=== PATIENT | female | born 1985 | race Two or more races ===

== ENCOUNTER 2020-04-18 17:44 | Emergency (ER) | payer OTHER ==
[~2020-04-18] VITALS: Ht 152.4 cm; Wt 105.2 kg
[~2020-04-18 17:44] MED LIST: LEVATOL20 MG
[2020-04-18] MEDS ORDERED: SYNTHROID175 MCG PO (17:57)
[2020-04-18] MEDS ORDERED: PROMETRIUM200 MG PO (17:57)
[2020-04-18] MEDS ORDERED: PRENA1 TRUE CO1 EACH PO (17:58)
[2020-04-18] MEDS ORDERED: FOLIC ACID20 MG PO (17:58)
== END 2020-04-18 20:44 | disposition home or self-care (01) ==
LOC: ER 17:44
DX: O20.8 Other hemorrhage in early pregnancy (principal); Z3A.01 Less than 8 weeks gestation of pregnancy

== ENCOUNTER → 2020-06-09 | Outpatient (CLI) | payer OTHER ==
[~2020-06-09] MED LIST changes: +FOLIC ACID20 MG PO; +PRENA1 TRUE CO1 EACH PO; +PROMETRIUM200 MG PO; +SYNTHROID175 MCG PO
== END | disposition home or self-care (01) ==
LOC: PRENATAL 11:00
PROVIDERS: ATTEND Obstetrics & Gynecology Maternal & Fetal Medicine
DX: O34.11 Maternal care for benign tumor of corpus uteri, first trimester (principal); O36.80X1 Pregnancy with inconclusive fetal viability, fetus 1; Z36.89 Encounter for other specified antenatal screening; Z3A.13 13 weeks gestation of pregnancy

== ENCOUNTER → 2020-07-28 | Outpatient (CLI) | payer OTHER | END | disposition home or self-care (01) | LOC: PRENATAL 13:00 | PROVIDERS: ATTEND Obstetrics & Gynecology Maternal & Fetal Medicine | DX: O99.891 Other specified diseases and conditions complicating pregnancy (principal); O99.212 Obesity complicating pregnancy, second trimester; O35.0XX1 Maternal care for (suspected) central nervous system malformation in fetus, fetus 1; O34.12 Maternal care for benign tumor of corpus uteri, second trimester; O35.3XX1 Maternal care for (suspected) damage to fetus from viral disease in mother, fetus 1; O98.512 Other viral diseases complicating pregnancy, second trimester; O09.522 Supervision of elderly multigravida, second trimester; Z36.89 Encounter for other specified antenatal screening; Z3A.21 21 weeks gestation of pregnancy ==

== ENCOUNTER → 2020-09-22 | Outpatient (CLI) | payer OTHER | END | disposition home or self-care (01) | LOC: PRENATAL 13:00 | PROVIDERS: ATTEND Obstetrics & Gynecology Maternal & Fetal Medicine | DX: O26.843 Uterine size-date discrepancy, third trimester (principal); O09.523 Supervision of elderly multigravida, third trimester; O99.213 Obesity complicating pregnancy, third trimester; O99.891 Other specified diseases and conditions complicating pregnancy; Z36.89 Encounter for other specified antenatal screening; Z3A.29 29 weeks gestation of pregnancy ==

== ENCOUNTER 2020-11-18 11:00 | Inpatient (IN) | payer OTHER ==
[~2020-11-18] VITALS: Ht 167.6 cm; Wt 128.8 kg
[~2020-11-18 11:00] MED LIST changes: +SYNTHROID175 MCG; -SYNTHROID175 MCG PO
[2020-11-18] MEDS ORDERED: SYNTHROID50 MCG (13:28)
[2020-11-18] MEDS ORDERED: SYNTHROID200 MCG (13:28)
[2020-11-18] MEDS ORDERED: ATABEX DHA 200200 MG (13:29)
[2020-11-18] MEDS ORDERED: LORATADINE10 MG (13:29)
== END 2020-11-20 15:35 | disposition home or self-care (01) | DRG 998 ==
LOC: OB/GYN 11:00 → LDR 11:00 → OB/GYN 11-19 10:34
PROVIDERS: ADMIT Obstetrics & Gynecology; ATTEND Obstetrics & Gynecology
PROC: 4A1HXFZ Monitoring of Products of Conception, Cardiac Rhythm, External Approach (ICD-10-PCS; principal; 2020-11-18)
DX: O10.02 Pre-existing essential hypertension complicating childbirth (principal); O99.284 Endocrine, nutritional and metabolic diseases complicating childbirth; E03.8 Other specified hypothyroidism; O36.8130 Decreased fetal movements, third trimester, not applicable or unspecified; Z3A.36 36 weeks gestation of pregnancy; Z20.822 Contact with and (suspected) exposure to COVID-19

== ENCOUNTER 2020-11-26 08:00 | Inpatient (IN) | payer OTHER ==
[~2020-11-26] VITALS: Ht 167.6 cm; Wt 3.6 kg
[~2020-11-26 08:00] MED LIST changes: +ATABEX DHA 200200 MG; +LORATADINE10 MG; +SYNTHROID200 MCG; +SYNTHROID50 MCG
[2020-11-26] MEDS ORDERED: SYNTHR PO (10:20)
[2020-11-26] MEDS ORDERED: PRENATABS FA T1 EACH PO (10:32)
[2020-12-01] MEDS ORDERED: LORATADINE10 MG (08:41)
[2020-12-01] MEDS ORDERED: SYNTHROID200 MCG (08:41)
[2020-12-01] MEDS ORDERED: SYNTHROID50 MCG (08:41)
[2020-12-02] MEDS ORDERED: SIMETHICONE125 M1 PO (13:21)
[2020-12-02] MEDS ORDERED: IBUPROFEN800 MG PO (13:21)
[2020-12-02] MEDS ORDERED: CODE1TAB37 PO (13:21)
== END 2020-12-02 18:06 | disposition home or self-care (01) | DRG 787 ==
LOC: O/R 11-28 06:00 → OB/GYN 11-28 06:00
PROVIDERS: ADMIT Obstetrics & Gynecology; ATTEND Obstetrics & Gynecology
PROC: 4A1HXFZ Monitoring of Products of Conception, Cardiac Rhythm, External Approach (ICD-10-PCS; 2020-11-28)
PROC: 10D00Z1 Extraction of Products of Conception, Low, Open Approach (ICD-10-PCS; principal; 2020-11-28 07:00)
DX: O64.8XX0 Obstructed labor due to other malposition and malpresentation, not applicable or unspecified (principal); O99.12 Other diseases of the blood and blood-forming organs and certain disorders involving the immune mechanism complicating childbirth; O34.211 Maternal care for low transverse scar from previous cesarean delivery; O69.81X0 Labor and delivery complicated by cord around neck, without compression, not applicable or unspecified; D69.59 Other secondary thrombocytopenia; Z37.0 Single live birth; Z3A.38 38 weeks gestation of pregnancy; Z20.822 Contact with and (suspected) exposure to COVID-19